=== PATIENT | male | born 1990 | race Caucasian/White ===

== ENCOUNTER 2017-06-13 00:34 | Emergency (ER) | payer MEDICAID ==
[2017-06-13 00:57] VITALS: TEMP 102.5
[2017-06-13] MEDS ORDERED: IBUPROFEN 600 MG TAB PO STA (01:06)
[2017-06-13] MEDS ORDERED: ACETAMINOPHEN TAB 500 MG TAB PO STA (01:06)
--- NOTE | 2017-06-13 01:08 | ED ---
General Adult HPI - General Chief complaint: Fever Stated complaint: fever Time Seen by Provider: 06/13/17 01:01 Source: patient, RN notes reviewed Mode of arrival: ambulatory Limitations: no limitations - History of Present Illness Initial comments: Patient is a pleasant 26-year-old male presenting to the emergency department with concerns for fever. Onset of symptoms was around 7 PM tonight. Patient complains of headache. Patient does have mild cough. Patient has had diarrhea a couple times a day for the past few days however none today. Patient has some nausea. No neck pain. - Related Data Allergies Allergy/AdvReac Type Severity Reaction Status Date / Time No Known Allergies Allergy Verified 06/13/17 00:57 Review of Systems ROS Statement: Those systems with pertinent positive or pertinent negative responses have been documented in the HPI. ROS Other: All systems not noted in ROS Statement are negative. Constitutional: Reports: fever, chills Eyes: Denies: eye pain ENT: Denies: ear pain Respiratory: Reports: cough. Denies: dyspnea Cardiovascular: Denies: chest pain Endocrine: Denies: fatigue Gastrointestinal: Reports: nausea, diarrhea. Denies: abdominal pain, vomiting Genitourinary: Denies: dysuria Musculoskeletal: Denies: back pain Skin: Denies: rash Neurological: Denies: weakness Past Medical History Past Medical History: GERD/Reflux, Hypertension History of Any Multi-Drug Resistant Organisms: None Reported Additional Past Surgical History / Comment(s): diverticulum. Past Psychological History: Depression Smoking Status: Never smoker Past Alcohol Use History: Occasional Past Drug Use History: None Reported General Exam Limitations: no limitations General appearance: alert, in no apparent distress Head exam: Present: atraumatic Eye exam: Present: normal appearance, PERRL ENT exam: Present: normal oropharynx Neck exam: Present: normal inspection Respiratory exam: Present: normal lung sounds bilaterally Cardiovascular Exam: Present: normal rhythm, tachycardia GI/Abdominal exam: Present: soft. Absent: tenderness Extremities exam: Present: normal inspection Neurological exam: Present: alert Psychiatric exam: Present: normal affect, normal mood Skin exam: Present: normal color Course Vital Signs 06/13/17 06/13/17 00:53 03:49 Temperature 102.5 F H Pulse Rate 147 H 108 H Respiratory 20 17 Rate Blood Pressure 133/74 110/65 O2 Sat by Pulse 100 96 Oximetry - Reevaluation(s) Reevaluation #1: 06/13/17 02:44 Patient was reexamined and resting comfortably in bed. Patient states he is starting to feel better. Abdomen is soft with mild tenderness right upper quadrant/epigastric region. No other abdominal tenderness. Patient states he does have history of previous appendectomy. 06/13/17 04:02 Patient again reexamined and resting comfortably in bed. Patient states he has a known history of hepatomegaly and fatty liver. Patient states he does have a history of elevated liver enzymes and has previously been tested for hepatitis and he does not have hepatitis. Patient is feeling better at this point and is comfortable with discharge. Medical Decision Making - Lab Data Result diagrams: 06/13/17 01:21 06/13/17 01:21 Lab Results 06/13/17 06/13/17 06/13/17 Range/Units 01:21 01:21 01:21 WBC 10.1 (3.8-10.6) k/uL RBC 5.00 (4.30-5.90) m/uL Hgb 15.6 (13.0-17.5) gm/dL Hct 44.4 (39.0-53.0) % MCV 88.9 (80.0-100.0) fL MCH 31.2 (25.0-35.0) pg MCHC 35.1 (31.0-37.0) g/dL RDW 14.9 (11.5-15.5) % Plt Count 199 (150-450) k/uL Neutrophils % 77 % Lymphocytes % 14 % Monocytes % 6 % Eosinophils % 0 % Basophils % 0 % Neutrophils # 7.8 H (1.3-7.7) k/uL Lymphocytes # 1.4 (1.0-4.8) k/uL Monocytes # 0.7 (0-1.0) k/uL Eosinophils # 0.0 (0-0.7) k/uL Basophils # 0.0 (0-0.2) k/uL PT (9.0-12.0) sec INR (<1.2) APTT (22.0-30.0) sec Sodium 138 (137-145) mmol/L Potassium 4.1 (3.5-5.1) mmol/L Chloride 103 (98-107) mmol/L Carbon Dioxide 22 (22-30) mmol/L Anion Gap 13 mmol/L BUN 14 (9-20) mg/dL Creatinine 1.10 (0.66-1.25) mg/dL Est GFR (MDRD) Af Amer >60 (>60 ml/min/1.73 sqM) Est GFR (MDRD) Non-Af >60 (>60 ml/min/1.73 sqM) Glucose 108 H (74-99) mg/dL Plasma Lactic Acid Andrew (0.7-2.0) mmol/L Calcium 9.8 (8.4-10.2) mg/dL Total Bilirubin 0.7 (0.2-1.3) mg/dL AST 41 (17-59) U/L ALT 126 H (21-72) U/L Alkaline Phosphatase 596 H (38-126) U/L Total Protein 8.0 (6.3-8.2) g/dL Albumin 4.5 (3.5-5.0) g/dL Urine Color Urine Appearance (Clear) Urine pH (5.0-8.0) Ur Specific [place] (1.001-1.035) Urine Protein (Negative) Urine Glucose (UA) (Negative) Urine Ketones (Negative) Urine Blood (Negative) Urine Nitrite (Negative) Urine Bilirubin (Negative) Urine Urobilinogen (<2.0) mg/dL Ur Leukocyte Esterase (Negative) Urine RBC (0-5) /hpf Urine WBC (0-5) /hpf Ur Squamous Epith Cells (0-4) /hpf Hyaline Casts (0-2) /lpf Urine Mucus (None) /hpf Influenza Type A RNA Not Detected (Not Detectd) Influenza Type B (PCR) Not Detected (Not Detectd) Group A Strep Rapid (Negative) 06/13/17 06/13/17 06/13/17 Range/Units 01:21 01:21 01:21 WBC (3.8-10.6) k/uL RBC (4.30-5.90) m/uL Hgb (13.0-17.5) gm/dL Hct (39.0-53.0) % MCV (80.0-100.0) fL MCH (25.0-35.0) pg MCHC (31.0-37.0) g/dL RDW (11.5-15.5) % Plt Count (150-450) k/uL Neutrophils % % Lymphocytes % % Monocytes % % Eosinophils % % Basophils % % Neutrophils # (1.3-7.7) k/uL Lymphocytes # (1.0-4.8) k/uL Monocytes # (0-1.0) k/uL Eosinophils # (0-0.7) k/uL Basophils # (0-0.2) k/uL PT 10.8 (9.0-12.0) sec INR 1.1 (<1.2) APTT 24.9 (22.0-30.0) sec Sodium (137-145) mmol/L Potassium (3.5-5.1) mmol/L Chloride (98-107) mmol/L Carbon Dioxide (22-30) mmol/L Anion Gap mmol/L BUN (9-20) mg/dL Creatinine (0.66-1.25) mg/dL Est GFR (MDRD) Af Amer (>60 ml/min/1.73 sqM) Est GFR (MDRD) Non-Af (>60 ml/min/1.73 sqM) Glucose (74-99) mg/dL Plasma Lactic Acid Andrew 1.6 (0.7-2.0) mmol/L Calcium (8.4-10.2) mg/dL Total Bilirubin (0.2-1.3) mg/dL AST (17-59) U/L ALT (21-72) U/L Alkaline Phosphatase (38-126) U/L Total Protein (6.3-8.2) g/dL Albumin (3.5-5.0) g/dL Urine Color Yellow Urine Appearance Clear (Clear) Urine pH 5.5 (5.0-8.0) Ur Specific [place] 1.020 (1.001-1.035) Urine Protein Negative (Negative) Urine Glucose (UA) Negative (Negative) Urine Ketones Negative (Negative) Urine Blood Trace H (Negative) Urine Nitrite Negative (Negative) Urine Bilirubin Negative (Negative) Urine Urobilinogen <2.0 (<2.0) mg/dL Ur Leukocyte Esterase Negative (Negative) Urine RBC <1 (0-5) /hpf Urine WBC 2 (0-5) /hpf Ur Squamous Epith Cells <1 (0-4) /hpf Hyaline Casts 1 (0-2) /lpf Urine Mucus Rare H (None) /hpf Influenza Type A RNA (Not Detectd) Influenza Type B (PCR) (Not Detectd) Group A Strep Rapid (Negative) 06/13/17 Range/Units 01:21 WBC (3.8-10.6) k/uL RBC (4.30-5.90) m/uL Hgb (13.0-17.5) gm/dL Hct (39.0-53.0) % MCV (80.0-100.0) fL MCH (25.0-35.0) pg MCHC (31.0-37.0) g/dL RDW (11.5-15.5) % Plt Count (150-450) k/uL Neutrophils % % Lymphocytes % % Monocytes % % Eosinophils % % Basophils % % Neutrophils # (1.3-7.7) k/uL Lymphocytes # (1.0-4.8) k/uL Monocytes # (0-1.0) k/uL Eosinophils # (0-0.7) k/uL Basophils # (0-0.2) k/uL PT (9.0-12.0) sec INR (<1.2) APTT (22.0-30.0) sec Sodium (137-145) mmol/L Potassium (3.5-5.1) mmol/L Chloride (98-107) mmol/L Carbon Dioxide (22-30) mmol/L Anion Gap mmol/L BUN (9-20) mg/dL Creatinine (0.66-1.25) mg/dL Est GFR (MDRD) Af Amer (>60 ml/min/1.73 sqM) Est GFR (MDRD) Non-Af (>60 ml/min/1.73 sqM) Glucose (74-99) mg/dL Plasma Lactic Acid Andrew (0.7-2.0) mmol/L Calcium (8.4-10.2) mg/dL Total Bilirubin (0.2-1.3) mg/dL AST (17-59) U/L ALT (21-72) U/L Alkaline Phosphatase (38-126) U/L Total Protein (6.3-8.2) g/dL Albumin (3.5-5.0) g/dL Urine Color Urine Appearance (Clear) Urine pH (5.0-8.0) Ur Specific [place] (1.001-1.035) Urine Protein (Negative) Urine Glucose (UA) (Negative) Urine Ketones (Negative) Urine Blood (Negative) Urine Nitrite (Negative) Urine Bilirubin (Negative) Urine Urobilinogen (<2.0) mg/dL Ur Leukocyte Esterase (Negative) Urine RBC (0-5) /hpf Urine WBC (0-5) /hpf Ur Squamous Epith Cells (0-4) /hpf Hyaline Casts (0-2) /lpf Urine Mucus (None) /hpf Influenza Type A RNA (Not Detectd) Influenza Type B (PCR) (Not Detectd) Group A Strep Rapid Negative (Negative) - Radiology Data Radiology results: report reviewed (Ultrasound gallbladder shows hepatomegaly with hepatic steatosis.), image reviewed (Two-view chest x-ray shows no acute process) Disposition Clinical Impression: Fever Disposition: HOME SELF-CARE Condition: Stable Instructions: Fever in Adults (ED) Additional Instructions: Please follow-up to primary care physician in the next day or 2 for recheck. Return for uncontrolled fever, headache, stiff neck, difficulty breathing, not tolerating fluids, worsening symptoms or other concerns. [id number] Motrin as needed. Referrals: Abdirizak Gomez MD [Primary Care Provider] - 1-2 days Time of Disposition: 04:04
[2017-06-13] MEDS: SODIUM CHLORIDE 0.9% 500 ML IV SCH ×4 (01:32→03:10)
[2017-06-13 01:37] LABS: Basophils % (A) 0 %; CH 30.8; CHCM 34.9; Eosinophils % (A) 0 %; HCT 44.4 % (39.0-53.0); HDW 2.94; HGB 15.6 gm/dL (13.0-17.5); Luc # (Auto) 0.21; Luc % (Auto) 2; Lymphocytes # (A) 1.4 k/uL (1.0-4.8); Lymphocytes % (A) 14 %; MCH 31.2 pg (25.0-35.0); MCHC 35.1 g/dL (31.0-37.0); MCV 88.9 fL (80.0-100.0); Mean Platelet Volume 8.1; Monocytes # (A) 0.7 k/uL (0-1.0); Monocytes % (A) 6 %; Neutrophils # (A) 7.8 k/uL (1.3-7.7); Neutrophils % (A) 77 %; RDW 14.9 % (11.5-15.5); WBC 10.1 k/uL (3.8-10.6); WBC (Perox) 10.93
[2017-06-13 01:45] LABS: INR 1.1 (<1.2); Partial Thromboplastin Time 24.9 sec (22.0-30.0); Prothrombin Time 10.8 sec (9.0-12.0)
[2017-06-13 01:46] LABS: Appearance,Urine Clear (Clear); Bilirubin,Urine Negative (Negative); Glucose,Urine (UA) Negative (Negative); Ketones,Urine Negative (Negative); Leukocyte Esterase,Urine Negative (Negative); Mucus,Urine Rare /hpf; Nitrite,Urine Negative (Negative); PH, Urine 5.5 (5.0-8.0); Particle Count 2353; Protein,Urine Negative (Negative); RBC,Urine <1 /hpf (0-5); Squamous Epithelial Cell,Urine <1 /hpf (0-4); UA Billing (MACRO vs. MICRO) MICRO; Urobilinogen,Urine <2.0 mg/dL (<2.0); WBC,Urine 2 /hpf (0-5)
[2017-06-13 01:50] LABS: ALT 126 U/L (21-72); AST 41 U/L (17-59); Alkaline Phosphatase 596 U/L (38-126); Anion Gap 13 mmol/L; Blood Urea Nitrogen 14 mg/dL (9-20); Calcium 9.8 mg/dL (8.4-10.2); Carbon Dioxide 22 mmol/L (22-30); Chloride 103 mmol/L (98-107); Glucose 108 mg/dL (74-99); Non-African American GFR(MDRD) >60 (>60 ml/min/1.73 sqM); Potassium 4.1 mmol/L (3.5-5.1); Sodium 138 mmol/L (137-145); Total Bilirubin 0.7 mg/dL (0.2-1.3)
--- NOTE | 2017-06-13 01:58 | XR ---
EXAMINATION TYPE: XR chest 2V DATE OF EXAM: 06/13/2017 COMPARISON: NONE HISTORY: Cough and congestion. Fever. TECHNIQUE: Frontal and lateral views of the chest are obtained. FINDINGS: Heart and mediastinum are normal. Lungs are clear. Diaphragm is normal. Bony thorax is int act. IMPRESSION: Normal chest
[2017-06-13 03:49] VITALS: BP 110/65; PULSE 108; RESP 17
--- NOTE | 2017-06-13 03:50 | US ---
EXAM: US Abdomen Limited, Right Upper Quadrant CLINICAL HISTORY: Reason: Pain TECHNIQUE: Real-time ultrasound of the right upper quadrant with image documentation. COMPARISON: No relevant prior studies available. FINDINGS: Liver: Liver is enlarged measuring up to 19 cm with increased echogenicity suggesting steatosis. No intrahepatic bile duct dilation. Gallbladder: No gallstones, sludge, gallbladder wall thickening or pericholecystic fluid. Negative sonographic Gaytan's sign. Common bile duct: Common bile duct is within normal limits measuring up to 4 mm. No stones. No dilation. Pancreas: Obscured by bowel gas. Right kidney: The right kidney is normal size and echogenicity measuring 10.57 m. No stones, masses or hydronephrosis. IMPRESSION: Hepatomegaly with hepatic steatosis.
== END 2017-06-13 04:13 | disposition home or self-care (01) ==
LOC: EC 00:34
DX: R50.9 Fever, unspecified (principal); R51 Headache; R05 Cough; R11.0 Nausea; R10.811 Right upper quadrant abdominal tenderness; R10.816 Epigastric abdominal tenderness
CPT/HCPCS: 36415; 71020; 76705; 80053; 81001; 83605; 85025; 85610; 85730; 87040; 87081; 87086; 87430; 87502; 96360; 96361; 99284

== ENCOUNTER → 2017-07-27 | Outpatient (CLI) | payer MEDICAID ==
--- NOTE | 2017-07-28 05:42 | CONS ---
CONSULTATION REASON FOR CONSULTATION: Consultation for sleep apnea. 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 The patient was on a trip with his friends and he was told to snore very loud and he quits breathing for an extended period of time to the point where he has to be wakened up by his friends to make sure he is alive and/or still breathing. He is aware of his loud snoring. He wakes up tired during the day. He goes to bed around 11 p.m. and wakes up at 5:30 a.m. in the morning. He wakes up with dry mouth. He occasionally wakes up gasping for air. However this is not a very common occurrence. He does not fall asleep during day-to-day activities. He does not fall asleep during work. No recent weight gain. He has developed some mild component of depression for which he is on venlafaxine 75 mg p.o. daily. No positive family history of obstructive sleep apnea. His weight has been stable over the past 1 year. Overall he has gained around 75 pounds over the past 5 years. PAST MEDICAL HISTORY: Hypertension, acid reflux and mild depression. PAST SURGICAL HISTORY: Past surgical history includes appendectomy. DRUG ALLERGIES: Drug allergies are not known. OUTPATIENT MEDICATION LIST: Outpatient medication list includes Protonix 40 q. day, lisinopril 10 q. day, venlafaxine 75 mg p.o. q. day. SOCIAL HISTORY: Nonsmoker. No history of alcohol. No history of IV drugs. The patient goes to school and he is a nurse's aide at [employer]. FAMILY HISTORY: Negative for sleep apnea. REVIEW OF SYSTEMS: Twelve-point review of system was done and positive findings are mentioned above in the history of present illness. PHYSICAL EXAMINATION: BP is 122/89, pulse 100, respirations 16, temperature 97.7, saturation 99% on room air. BMI 35.7, weight is 249. Height is 5 feet 10 inches. Neck size 17.5 inches. GENERAL APPEARANCE: Calm, comfortable. Head is atraumatic, normocephalic. Neck is supple. There is no JVD. There is no goiter or neck masses. Mallampati class 4. Bilateral tonsillar enlargement. Redundant and enlarged uvula. LUNGS: Clear to auscultation. HEART: Sounds regular rate and rhythm. Normal S1, S2. No S3, S4. No murmurs. ABDOMEN: Soft, nontender. No organomegaly. EXTREMITIES: No edema. No cyanosis or clubbing at this point. NEUROLOGIC: Alert and oriented x3. There is no focal neurological deficits. Psychiatrically, the patient has appropriate mood and affect. SKIN: Negative for ulceration, wound, or cellulitis. IMPRESSION: 1. Obstructive sleep apnea clinically suspected under investigation. 2. Chronic fatigue and sleepiness. Houston Score is at 9. 3. Bilateral tonsillar enlargement. 4. Mild depression. 5. Hypertension. 6. Acid reflux. PLAN: 1. Encourage weight loss. 2. Implement good sleep hygiene measures. 3. Proceed with a screening polysomnogram. We will continue to follow. CHRISTOPHE / WILFREDN: [id number] /
== END | disposition home or self-care (01) ==
LOC: SLEEP 16:10
PROVIDERS: ATTEND Internal Medicine Critical Care Medicine
DX: J35.1 Hypertrophy of tonsils (principal); F32.9 Major depressive disorder, single episode, unspecified; I10 Essential (primary) hypertension; K21.9 Gastro-esophageal reflux disease without esophagitis; R53.82 Chronic fatigue, unspecified; Z79.899 Other long term (current) drug therapy
CPT/HCPCS: 99211

== ENCOUNTER 2018-06-11 09:35 | Emergency (ER) | payer MEDICAID ==
[2018-06-11 09:45] VITALS: BP 128/87; PULSE 95; RESP 16; TEMP 98.1
--- NOTE | 2018-06-11 09:54 | ED ---
Lower Extremity Injury HPI - General Chief Complaint: Extremity Injury, Lower Stated Complaint: Foot injury/Fall Time Seen by Provider: 06/11/18 09:46 Source: patient, RN notes reviewed Mode of arrival: wheelchair Limitations: no limitations - History of Present Illness Initial Comments: 27-year-old male present emergency department tingling right ankle injury. Patient states that he was going to the car states that he slipped on some ice and states that his foot and ankle rotated outward. Patient complains of right ankle pain. He states she's had a sprain in the past no acute fractures. Patient denies any head injury no loss conscious. Patient denies any other areas of pain at this time. Patient does admit to some swelling. Unable to bear weight secondary to pain. - Related Data Previous Rx's Medication Instructions Recorded Ibuprofen [Motrin] 600 mg PO Q8HR PRN #30 tab 06/11/18 Allergies Allergy/AdvReac Type Severity Reaction Status Date / Time No Known Allergies Allergy Verified 06/11/18 09:45 Review of Systems ROS Statement: Those systems with pertinent positive or pertinent negative responses have been documented in the HPI. ROS Other: All systems not noted in ROS Statement are negative. Past Medical History Past Medical History: GERD/Reflux, Hypertension History of Any Multi-Drug Resistant Organisms: None Reported Additional Past Surgical History / Comment(s): diverticulum. Past Psychological History: Depression Smoking Status: Never smoker Past Alcohol Use History: Occasional Past Drug Use History: None Reported General Exam Limitations: no limitations General appearance: alert, in no apparent distress Head exam: Present: atraumatic, normocephalic, normal inspection Neck exam: Present: normal inspection, full ROM. Absent: tenderness, meningismus, lymphadenopathy Respiratory exam: Present: normal lung sounds bilaterally. Absent: respiratory distress, wheezes, rales, rhonchi, stridor Cardiovascular Exam: Present: regular rate, normal rhythm, normal heart sounds. Absent: systolic murmur, diastolic murmur, rubs, gallop, clicks Extremities exam: Present: other (Right ankle there is moderate swelling, tenderness over lateral malleoli region, no foot tenderness there is no proximal tib-fib tenderness neurovascular intact right leg pulses equal bilaterally) Skin exam: Present: warm, dry, intact, normal color. Absent: rash Course Vital Signs 06/11/18 09:43 Temperature 98.1 F Pulse Rate 95 Respiratory 16 Rate Blood Pressure 128/87 O2 Sat by Pulse 98 Oximetry Procedures - Orthopedic Splinting/Casting Injury #1 Side: right Lower Extremity Injury Location: short leg, ankle Lower Extremity Immobilizer: posterior splint, synthetic pre-padded splint Other Orthopedic Equipment: crutches Medical Decision Making - Medical Decision Making 27-year-old male presents emergency from for right ankle injury. Patient has a fracture of the posterior malleolus and fibula. Patient will be splinted and follow up with orthopedics. Return parameters were discussed. Disposition Clinical Impression: Closed right ankle fracture Disposition: HOME SELF-CARE Condition: Stable Instructions: Ankle Fracture (ED) Additional Instructions: Please return to the Emergency Department if symptoms worsen or any other concerns. Prescriptions: Ibuprofen [Motrin] 600 mg PO Q8HR PRN #30 tab PRN Reason: Pain Is patient prescribed a controlled substance at d/c from ED?: No Referrals: Abdirizak Gomez MD [Primary Care Provider] - 1-2 days Som Blankenship DO [Doctor of Osteopathic Medicine] - 1-2 days Time of Disposition: 10:19
--- NOTE | 2018-06-11 10:09 | XR ---
EXAMINATION TYPE: XR ankle complete RT , 3 VIEWS DATE OF EXAM ORDERED: 06/11/2018 HISTORY: Pain. COMPARISON: None. FINDINGS: There is a mildly displaced spiral fracture of the distal right fibular metaphysis. There is also a minimally displaced fracture the posterior malleolus. There is a small ankle joint effusion . IMPRESSION: MILDLY DISPLACED FRACTURES OF THE POSTERIOR LATERAL MALLEOLI. CODE A: INITIAL ENCOUNTER FOR CLOSED FRACTURE.
[2018-06-11] MEDS ORDERED: ACET/COD 300 MG/30 MG STARTER PACK 6 TAB BTL PO STA (10:17)
== END 2018-06-11 10:45 | disposition home or self-care (01) ==
LOC: EC 09:35
DX: S82.61XA Displaced fracture of lateral malleolus of right fibula, initial encounter for closed fracture (principal); S82.491A Other fracture of shaft of right fibula, initial encounter for closed fracture; W00.0XXA Fall on same level due to ice and snow, initial encounter
CPT/HCPCS: 29515; 99283

== ENCOUNTER 2018-08-27 07:45 | Emergency (ER) | payer MEDICAID ==
[2018-08-27 07:50] VITALS: BP 144/90; PULSE 76; RESP 18; TEMP 98.1
[2018-08-27] MEDS ORDERED: KETOROLAC 30 MG/ML 1 ML VIAL IVP STA (08:00)
[2018-08-27] MEDS ORDERED: SODIUM CHLORIDE 0.9% 1,000 ML IV STA (08:00)
--- NOTE | 2018-08-27 08:04 | ED ---
General Adult HPI - General Chief complaint: Abdominal Pain Stated complaint: diarrhea Time Seen by Provider: 08/27/18 07:54 Source: patient Mode of arrival: ambulatory Limitations: no limitations - Related Data Home Medications Medication Instructions Recorded Confirmed Lisinopril-Hctz 10-12.5 mg 1 tab PO DAILY 08/27/18 08/27/18 [Zestoretic 10-12.5] Pantoprazole [Protonix] 40 mg PO DAILY 08/27/18 08/27/18 Venlafaxine HCl [Effexor XR] 75 mg PO DAILY 08/27/18 08/27/18 Previous Rx's Medication Instructions Recorded Azithromycin [Zithromax Z-pack] 0 mg PO DIRECTED #6 tab 08/27/18 Allergies Allergy/AdvReac Type Severity Reaction Status Date / Time No Known Allergies Allergy Verified 08/27/18 08:52 Review of Systems ROS Statement: Those systems with pertinent positive or pertinent negative responses have been documented in the HPI. ROS Other: All systems not noted in ROS Statement are negative. Past Medical History Past Medical History: GERD/Reflux, Hypertension History of Any Multi-Drug Resistant Organisms: None Reported Additional Past Surgical History / Comment(s): diverticulum. Past Psychological History: Depression Smoking Status: Never smoker Past Alcohol Use History: Occasional Past Drug Use History: None Reported General Exam Limitations: no limitations Course Vital Signs 08/27/18 07:47 Temperature 98.1 F Pulse Rate 76 Respiratory 18 Rate Blood Pressure 144/90 O2 Sat by Pulse 97 Oximetry Medical Decision Making - Medical Decision Making Dictation was produced using [employer] dictation software. please excuse any grammatical, word or spelling errors. Chief Complaint: 27-year-old male past medical history of diverticulitis presents with persistent diarrhea since last night. History of Present Illness: Patient is 27-year-old male. 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 Patient has past history of diverticulitis. Patient was told when he was diagnosed with diverticulitis. Patient states he had colectomy for this. Patient states since last night he's been having a approximately 8 episodes of diarrhea. He states that it's brown and watery. Denies any exposure to any patients or individuals with similar symptoms. Patient denies any recent travel. Denies any constitutional symptoms. He tried taking Imodium without any resolution of his symptoms. Patient states he has some abdominal pain. He states crampy abdominal pain localized to the suprapubic area. He does report some blood in his stool. The ROS documented in this emergency department record has been reviewed and confirmed by me. Those systems with pertinent positive or negative responses have been documented in the HPI. All other systems are other negative and/or noncontributory. PHYSICAL EXAM: General Impression: Alert and oriented x3, not in acute distress HEENT: Normocephalic atraumatic, extra-ocular movements intact, pupils equal and reactive to light bilaterally, mucous membranes moist. Cardiovascular: Heart regular rate and rhythm, S1&S2 audible, no murmurs, rubs or gallops Chest: Lungs clear to auscultation bilaterally, no rhonchi, no wheeze, no rales Abdomen: Bowel sounds present, abdomen soft, non-tender, non-distended, no organomegaly Musculoskeletal: Pulses present and equal in all extremities, no peripheral edema Motor: Power 5/5 bilaterally, no focal deficits noted Neurological: CN II-XII grossly intact, no focal motor or sensory deficits noted Skin: Intact with no visualized rashes Psych: Normal affect and mood ED course: 27-year-old male presents with chief complaint of diarrhea, suprapubic abdominal pain. As upon arrival are within acceptable limits. Clinical presentation concerning for diverticulitis versus bacterial gastroenteritis. Labs and imaging is obtained. Labs obtained was no remarkable findings. No leukocytosis. CT abdomen and pelvis with contrast shows no acute processes. Patient reevaluated with improvement of symptoms after intravenous fluids. Patient be discharged with prescription for azithromycin. Patient given follow-up with GI if his symptoms don't improve. Otherwise he can follow up with primary care physician. Patient advised to continue taking loperamide or other antidiarrheal medication. - Lab Data Result diagrams: 08/27/18 08:28 08/27/18 08:28 Lab Results 08/27/18 08/27/18 08/27/18 Range/Units 08:28 08:28 08:28 WBC 10.4 (3.8-10.6) k/uL RBC 5.14 (4.30-5.90) m/uL Hgb 15.5 (13.0-17.5) gm/dL Hct 45.5 (39.0-53.0) % MCV 88.5 (80.0-100.0) fL MCH 30.1 (25.0-35.0) pg MCHC 34.0 (31.0-37.0) g/dL RDW 13.7 (11.5-15.5) % Plt Count 244 (150-450) k/uL Neutrophils % 60 % Lymphocytes % 28 % Monocytes % 8 % Eosinophils % 1 % Basophils % 0 % Neutrophils # 6.2 (1.3-7.7) k/uL Lymphocytes # 2.9 (1.0-4.8) k/uL Monocytes # 0.8 (0-1.0) k/uL Eosinophils # 0.1 (0-0.7) k/uL Basophils # 0.0 (0-0.2) k/uL Sodium 140 (137-145) mmol/L Potassium 4.6 (3.5-5.1) mmol/L Chloride 105 (98-107) mmol/L Carbon Dioxide 26 (22-30) mmol/L Anion Gap 9 mmol/L BUN 14 (9-20) mg/dL Creatinine 0.77 (0.66-1.25) mg/dL Est GFR (CKD-EPI)AfAm >90 (>60 ml/min/1.73 sqM) Est GFR (CKD-EPI)NonAf >90 (>60 ml/min/1.73 sqM) Glucose 122 H (74-99) mg/dL Calcium 10.3 H (8.4-10.2) mg/dL Total Bilirubin 0.4 (0.2-1.3) mg/dL AST 69 H (17-59) U/L ALT 176 H (21-72) U/L Alkaline Phosphatase 67 (38-126) U/L Total Protein 8.2 (6.3-8.2) g/dL Albumin 4.5 (3.5-5.0) g/dL Lipase 43 (23-300) U/L Urine Color Light Yellow Urine Appearance Clear (Clear) Urine pH 6.5 (5.0-8.0) Ur Specific [place] 1.011 (1.001-1.035) Urine Protein Negative (Negative) Urine Glucose (UA) Negative (Negative) Urine Ketones Negative (Negative) Urine Blood Negative (Negative) Urine Nitrite Negative (Negative) Urine Bilirubin Negative (Negative) Urine Urobilinogen <2.0 (<2.0) mg/dL Ur Leukocyte Esterase Negative (Negative) Disposition Clinical Impression: Gastroenteritis Disposition: HOME SELF-CARE Condition: Good Instructions (If sedation given, give patient instructions): Gastroenteritis ( ED) Prescriptions: Azithromycin [Zithromax Z-pack] 0 mg PO DIRECTED #6 tab Is patient prescribed a controlled substance at d/c from ED?: No Referrals: Abdirizak Gomez MD [Primary Care Provider] - 1-2 days Jono Abernathy MD [STAFF PHYSICIAN] - 1-2 days Time of Disposition: 10:03
[2018-08-27 08:46] LABS: Appearance,Urine Clear (Clear); Basophils % (A) 0 %; Bilirubin,Urine Negative (Negative); Blood,Urine Negative (Negative); Color,Urine Light Yellow; Eosinophils # (A) 0.1 k/uL (0-0.7); Eosinophils % (A) 1 %; Glucose,Urine (UA) Negative (Negative); HCT 45.5 % (39.0-53.0); HGB 15.5 gm/dL (13.0-17.5); Ketones,Urine Negative (Negative); Leukocyte Esterase,Urine Negative (Negative); Lymphocytes # (A) 2.9 k/uL (1.0-4.8); Lymphocytes % (A) 28 %; MCH 30.1 pg (25.0-35.0); MCV 88.5 fL (80.0-100.0); Monocytes # (A) 0.8 k/uL (0-1.0); Monocytes % (A) 8 %; Neutrophils # (A) 6.2 k/uL (1.3-7.7); Neutrophils % (A) 60 %; Nitrite,Urine Negative (Negative); PH, Urine 6.5 (5.0-8.0); Platelet Count 244 k/uL (150-450); Protein,Urine Negative (Negative); RBC 5.14 m/uL (4.30-5.90); RDW 13.7 % (11.5-15.5); Specific Gravity,Urine 1.011 (1.001-1.035); Urobilinogen,Urine <2.0 mg/dL (<2.0); WBC 10.4 k/uL (3.8-10.6)
[2018-08-27 09:01] LABS: ALT 176 U/L (21-72); AST 69 U/L (17-59); Albumin 4.5 g/dL (3.5-5.0); Alkaline Phosphatase 67 U/L (38-126); Anion Gap 9 mmol/L; Blood Urea Nitrogen 14 mg/dL (9-20); Calcium 10.3 mg/dL (8.4-10.2); Carbon Dioxide 26 mmol/L (22-30); Chloride 105 mmol/L (98-107); Glucose 122 mg/dL (74-99); Lipase 43 U/L (23-300); Potassium 4.6 mmol/L (3.5-5.1); Sodium 140 mmol/L (137-145); Total Bilirubin 0.4 mg/dL (0.2-1.3); Total Protein 8.2 g/dL (6.3-8.2)
--- NOTE | 2018-08-27 09:47 | CT ---
EXAMINATION TYPE: CT abdomen pelvis w con DATE OF EXAM: 08/27/2018 COMPARISON: None. HISTORY: Diarrhea CT DLP: 1608.7 mGycm, Automated Exposure Control for Dose Reduction was Utilized. CONTRAST: CT scan of the abdomen and pelvis is performed without oral but with IV Contrast, patient injected wi th 100 mL of Isovue 300. FINDINGS: LUNG BASES: No significant abnormality is appreciated. LIVER/GB: Liver is diffusely low dense consistent with fatty infiltration. PANCREAS: No significant abnormality is seen. SPLEEN: No significant abnormality is seen. ADRENALS: No significant abnormality is seen. KIDNEYS: No significant abnormality is seen. BOWEL: Appendix noted surgically absent. No suspicious bowel dilatation or abnormal wall thickening. PROSTATE/SEMINAL VESICLES: No gross abnormality seen. LYMPH NODES: No greater than 1cm abdominal or pelvic lymph nodes are appreciated. OSSEOUS STRUCTURES: Small posterior disc herniations L4-L5 and L5-S1 level are seen on sagittal image 78. OTHER: No significant additional abnormality is seen. IMPRESSION: No significant acute finding is seen to account for patient's clinical symptoms.
== END 2018-08-27 10:18 | disposition home or self-care (01) ==
LOC: EC 07:45
DX: K52.9 Noninfective gastroenteritis and colitis, unspecified (principal); I10 Essential (primary) hypertension; K21.9 Gastro-esophageal reflux disease without esophagitis; F32.9 Major depressive disorder, single episode, unspecified; Z79.899 Other long term (current) drug therapy; Z90.49 Acquired absence of other specified parts of digestive tract
CPT/HCPCS: 36415; 80053; 83690; 85025; 81003; 74177; 99284; 96374; 96361 ×2; J1885; Q9967

== ENCOUNTER → 2019-08-04 | Outpatient (CLI) | payer MEDICAID ==
[2019-08-04 20:10] LABS: African American GFR (CKD) 136.1 (60.0-200.0); Albumin 4.6 g/dL (3.80-4.90); Albumin/Globulin Ratio 1.64 (1.60-3.17); Anion Gap 7.1 mmol/L (4.00-12.00); BUN/Creat Ratio 17.78 Ratio (12.00-20.00); Calcium 9.7 mg/dL (8.7-10.3); Carbon Dioxide 24.9 mmol/L (21.6-31.8); Chol/HDL Ratio 5.03; Globulin 2.8 g/dL (1.6-3.3); Non-African American GFR(CKD) 117.5 (60.0-200.0); Potassium 4.1 mmol/L (3.5-5.5); Total Bilirubin 0.4 mg/dL (0.3-1.2); Total Protein 7.4 g/dL (6.2-8.2)
== END | disposition home or self-care (01) ==
LOC: LABWHC1 07:32
PROVIDERS: ATTEND Family Medicine
DX: I10 Essential (primary) hypertension (principal); F34.1 Dysthymic disorder
CPT/HCPCS: 36415; 80053; 80061; 84443

== ENCOUNTER → 2019-09-05 | Outpatient (CLI) | payer MEDICAID ==
--- NOTE | 2019-09-05 22:35 | PN ---
PROGRESS NOTE SLEEP CENTER PROGRESS NOTE: DATE OF SERVICE: 09/05/2019 This is a very pleasant 28-year-old gentleman who follows with Dr. Gomez as his primary care provider. He has a history of hypertension, gastroesophageal reflux disease, anxiety/depression. He follows with Dr. Singleton here in the sleep center for severe symptomatic obstructive sleep apnea with an initial AHI of 95.2. He has since undergone CPAP titration and has improved significantly. He did not bring his CPAP machine with him today. He was hoping just to get his prescriptions renewed, as he was last here over one year ago. He utilizes [facility]. He wears an Belén View medium-sized mask and filters with a Dream Station CPAP. He is doing quite well from the sleep apnea standpoint. He sleeps very well. He has no significant daytime sleepiness. His [place] Sleepiness Scale score is 5. He has been attempting to lose weight. PHYSICAL EXAMINATION: This is a very pleasant 28-year-old gentleman in no acute distress. VITAL SIGNS: Blood pressure 126/76, heart rate 111, respirations 16, temperature 97.9. He is 97% oxygen saturation on room air. HEAD: Normocephalic. Sclerae anicteric. There is crowding in the posterior pharynx. His neck is short, supple. Trachea midline. LUNGS: Clear anteriorly and posteriorly. HEART: Regular S1, S2. ABDOMEN: Obese, soft, nontender. Bowel sounds are present. There is no significant peripheral edema. No clubbing. No cyanosis. Peripheral pulses are intact. CURRENT MEDICATIONS: His current medications include lisinopril 10/12.5 one tablet daily, pantoprazole 40 mg daily, bupropion 150 mg daily, venlafaxine 150 mg at bedtime. IMPRESSION: 1. Severe symptomatic obstructive sleep apnea with an apnea-hypopnea index of 95.2. The patient has undergone successful CPAP titration and is tolerating his device well. 2. Severe nocturnal oxygen desaturation, recovered with CPAP therapy. 3. Sleep fragmentation, improved with CPAP therapy. 4. Abnormal sleep architecture, improved with CPAP therapy. 5. Chronic hypersomnia, improved. 6. Obesity with a body mass index of 38. 7. Gastroesophageal reflux disease. 8. History of mild anxiety/depression. 9. Hypertension. 10.Bilateral tonsillar enlargement. PLAN: The patient's case was reviewed and discussed with Dr. Singleton. He will continue with his current CPAP therapy settings, which are 17 cm water with a C-flex of 3. He will continue with the Bel[place] View medium-sized face mask along with tubing and filters; prescriptions will be sent to [facility]. He is again encouraged regarding the importance of weight loss. He does have a history of bilateral tonsil enlargement and will be following with ENT in the future. The patient verbalizes understanding and is agreeable to the plan. I, the cosigning physician, performed a history and physical examination on the patient. Lung sounds are clear. Maintain oxygen saturation in the 90s on room air. I discussed the assessment and plan of care with my nurse practitioner, Barb Gutiérrez. I attest to the above note as dictated by her. MMODL / IJN: [id number] /
== END | disposition home or self-care (01) ==
LOC: SLEEP 13:41
PROVIDERS: ATTEND Internal Medicine Critical Care Medicine
DX: G47.33 Obstructive sleep apnea (adult) (pediatric) (principal); E66.9 Obesity, unspecified; Z68.38 Body mass index [BMI] 38.0-38.9, adult; K21.9 Gastro-esophageal reflux disease without esophagitis; Z86.59 Personal history of other mental and behavioral disorders; I10 Essential (primary) hypertension; J35.1 Hypertrophy of tonsils; Z99.89 Dependence on other enabling machines and devices; Z79.899 Other long term (current) drug therapy

== ENCOUNTER 2020-07-26 07:29 | Emergency (ER) | payer MEDICAID, OTHER ==
--- NOTE | 2020-07-26 07:32 | ED ---
Recheck HPI - General Source: patient, RN notes reviewed Mode of arrival: ambulatory Limitations: no limitations <Jose Castillo - Last Filed: 07/26/20 07:49> <Carol Shah - Last Filed: 07/27/20 13:19> - General Stated Complaint: needle stick from his job Time Seen by Provider: 07/26/20 07:31 - History of Present Illness Initial Comments: 29-year-old male present emergency department to complaint of needlestick. Patient states he went to close a safety cap on the needle after given IM Zofran states that he poked his finger. There is minimal skin breakage at that time. He is up-to-date on his tetanus there is no history of hepatitis or HIV of the known patient. Patient's blood was drawn and was sent out for testing. Patient offers no complaints. (Jose Castillo) - Related Data Home Medications Medication Instructions Recorded Confirmed Lisinopril-Hctz 10-12.5 mg 1 tab PO DAILY 08/27/18 08/27/18 [Zestoretic 10-12.5] Pantoprazole [Protonix] 40 mg PO DAILY 08/27/18 08/27/18 Venlafaxine HCl [Effexor XR] 75 mg PO DAILY 08/27/18 08/27/18 Previous Rx's Medication Instructions Recorded Azithromycin [Zithromax Z-pack] 0 mg PO DIRECTED #6 tab 08/27/18 Allergies Allergy/AdvReac Type Severity Reaction Status Date / Time No Known Allergies Allergy Verified 07/26/20 07:41 Review of Systems ROS Other: All systems not noted in ROS Statement are negative. <Jose Castillo - Last Filed: 07/26/20 07:49> ROS Other: All systems not noted in ROS Statement are negative. <Carol Shah - Last Filed: 07/27/20 13:19> ROS Statement: Those systems with pertinent positive or pertinent negative responses have been documented in the HPI. Past Medical History Past Medical History: GERD/Reflux, Hypertension History of Any Multi-Drug Resistant Organisms: None Reported Additional Past Surgical History / Comment(s): diverticulum. Past Psychological History: Depression Past Alcohol Use History: Occasional Past Drug Use History: None Reported <Jose Castillo - Last Filed: 07/26/20 07:49> General Exam General appearance: alert, in no apparent distress Head exam: Present: atraumatic, normocephalic, normal inspection Respiratory exam: Present: normal lung sounds bilaterally. Absent: respiratory distress, wheezes, rales, rhonchi, stridor Cardiovascular Exam: Present: regular rate, normal rhythm, normal heart sounds. Absent: systolic murmur, diastolic murmur, rubs, gallop, clicks Extremities exam: Present: other (Finger puncture wound noted left hand) <Jose Castillo - Last Filed: 07/26/20 07:49> Course Vital Signs 07/26/20 07:39 Temperature 98.9 F Pulse Rate 93 Respiratory 18 Rate Blood Pressure 138/90 O2 Sat by Pulse 97 Oximetry Medical Decision Making <Jose Castillo - Last Filed: 07/26/20 07:49> <Carol Shah - Last Filed: 07/27/20 13:19> - Medical Decision Making Patient did have hepatitis and rapid HIV drawn. Sources blood was sent out for testing. Patient was offered HIV prophylaxis patient states that he will decline pending results. (Jose Castillo) I was available for consultation in the emergency department. The history and physical exam were done by the midlevel provider. I was consulted for this patients care. I reviewed the case with the midlevel provider and based on their presentation of the patient, I agree with the assessment, medical decision making and plan of care as documented. Chart was dictated using iSSimple dictation software. Attempts were made to correct any dictation errors however some typographical errors may persist. Patient was seen during a national state of emergency due to the Covid-19 pandemic. (Carol Shah) - Lab Data Lab Results 07/26/20 Range/Units 07:53 Hep Bs Antigen Non-Reactive (Non-Reactive) Hep Bs Antibody Non-Reactive (Non-Reactive) Hep Bs Antibody, Quant 3.5 mIU/mL Hep C IgG Ab Non-Reactive (Non-Reactive) Disposition Is patient prescribed a controlled substance at d/c from ED?: No <Jose Castillo - Last Filed: 07/26/20 07:49> <Carol Shah - Last Filed: 07/27/20 13:19> Clinical Impression: Needlestick injury accident Disposition: HOME SELF-CARE Condition: Stable Instructions (If sedation given, give patient instructions): Needle Stick Injuries (ED) Additional Instructions: Please return to the Emergency Department if symptoms worsen or any other concerns. Referrals: Abdirizak Gomez MD [Primary Care Provider] - 1-2 days
[2020-07-26 07:41] VITALS: BP 138/90; PULSE 93; RESP 18; TEMP 98.9
[2020-07-26 11:30] LABS: Hepatitis B Surface AB- Quant 3.5 mIU/mL; Hepatitis B Surface Antibody Non-Reactive (Non-Reactive); Hepatitis B Surface Antigen Non-Reactive (Non-Reactive); Hepatitis C IgG Antibody Non-Reactive (Non-Reactive)
== END 2020-07-26 08:01 | disposition home or self-care (01) ==
LOC: EC 07:29
DX: S61.239A Puncture wound without foreign body of unspecified finger without damage to nail, initial encounter (principal); K21.9 Gastro-esophageal reflux disease without esophagitis; I10 Essential (primary) hypertension; F32.9 Major depressive disorder, single episode, unspecified; Z79.899 Other long term (current) drug therapy; Z77.21 Contact with and (suspected) exposure to potentially hazardous body fluids; X58.XXXA Exposure to other specified factors, initial encounter
CPT/HCPCS: 36415; 86706; 86803; 87340; 87390; 99282

== ENCOUNTER 2020-07-29 14:47 | Emergency (ER) | payer MEDICAID, OTHER ==
[2020-07-29 14:57] VITALS: BP 127/83; PULSE 86; RESP 18; TEMP 98.5
--- NOTE | 2020-07-29 15:42 | ED ---
Recheck HPI - General Chief Complaint: Recheck/Abnormal Lab/Rx Stated Complaint: [facility]-needlestick Time Seen by Provider: 07/29/20 15:18 Source: patient Mode of arrival: ambulatory Limitations: no limitations - History of Present Illness Initial Comments: 29-year-old male presenting to emergency Department for injection of hepatitis B immune globulin per request of [facility]. Patient states he had a needle stick exposure recently and he was evaluated in emergency department. However, he was sent back to the emergency department in orderr to obtain the hepatitis B immune globulin. He has no complaints. - Related Data Home Medications Medication Instructions Recorded Confirmed Lisinopril-Hctz 10-12.5 mg 1 tab PO DAILY 08/27/18 08/27/18 [Zestoretic 10-12.5] Pantoprazole [Protonix] 40 mg PO DAILY 08/27/18 08/27/18 Venlafaxine HCl [Effexor XR] 75 mg PO DAILY 08/27/18 08/27/18 Previous Rx's Medication Instructions Recorded Azithromycin [Zithromax Z-pack] 0 mg PO DIRECTED #6 tab 08/27/18 Allergies Allergy/AdvReac Type Severity Reaction Status Date / Time No Known Allergies Allergy Verified 07/29/20 14:57 Review of Systems ROS Statement: Those systems with pertinent positive or pertinent negative responses have been documented in the HPI. ROS Other: All systems not noted in ROS Statement are negative. Past Medical History Past Medical History: GERD/Reflux, Hypertension History of Any Multi-Drug Resistant Organisms: None Reported Additional Past Surgical History / Comment(s): diverticulum. Past Psychological History: Anxiety, Depression Smoking Status: Never smoker Past Alcohol Use History: Occasional Past Drug Use History: None Reported General Exam Limitations: no limitations General appearance: alert, in no apparent distress Head exam: Present: atraumatic, normocephalic, normal inspection Eye exam: Present: normal appearance Pupils: Present: normal accommodation ENT exam: Present: normal exam Neck exam: Present: normal inspection, full ROM Respiratory exam: Present: normal lung sounds bilaterally Cardiovascular Exam: Present: regular rate, normal rhythm, normal heart sounds Extremities exam: Present: normal inspection, full ROM Back exam: Present: normal inspection, full ROM Neurological exam: Present: alert, oriented X3, normal gait Psychiatric exam: Present: normal affect, normal mood Skin exam: Present: warm, dry, intact, normal color Course Vital Signs 07/29/20 14:52 Temperature 98.5 F Pulse Rate 86 Respiratory 18 Rate Blood Pressure 127/83 O2 Sat by Pulse 98 Oximetry Medical Decision Making - Medical Decision Making 29-year-old male presenting to the emergency department for administration of hepatitis B immunoglobulin per the request of [facility]. Patient was given medication. He will be discharged. Disposition Clinical Impression: Needle stick injury Disposition: HOME SELF-CARE Condition: Stable Instructions (If sedation given, give patient instructions): Needle Stick Injuries (ED) Additional Instructions: Return to emergency department if symptoms worsen. Is patient prescribed a controlled substance at d/c from ED?: No Referrals: Abdirizak Gomez MD [Primary Care Provider] - 1-2 days Time of Disposition: 16:02
[2020-07-29] MEDS ORDERED: HEPATITIS B IMMUNE GLOBULIN 5 ML VIAL IM ONE (16:03)
== END 2020-07-29 16:44 | disposition home or self-care (01) ==
LOC: EC 14:47
DX: Z77.21 Contact with and (suspected) exposure to potentially hazardous body fluids (principal)
CPT/HCPCS: 90371; 96372; 99281

== ENCOUNTER → 2020-08-30 | Outpatient (CLI) | payer BC ==
[2020-08-30 15:19] LABS: Basophils # (A) 0.04 X 10*3/uL (0.00-0.10); Basophils % (A) 0.5 %; Eosinophils # (A) 0.11 X 10*3/uL (0.04-0.35); Eosinophils % (A) 1.4 %; HCT 45.4 % (39.6-50.0); HGB 15.4 g/dL (13.0-17.0); Lymphocytes # (A) 2.93 X 10*3/uL (0.90-5.00); Lymphocytes % (A) 36.6 %; MCH 30.2 pg (27.0-32.0); MCHC 33.9 g/dL (32.0-37.0); Mean Platelet Volume 10.7 fL (9.5-12.2); Monocytes # (A) 0.87 X 10*3/uL (0.20-1.00); Monocytes % (A) 10.9 %; Neutrophils # (A) 4.02 X 10*3/uL (1.80-7.70); Neutrophils % (A) 50.1 %; Platelet Count 243 X 10*3/uL (140-440); RDW 13.9 % (11.5-14.5); WBC 8.01 X 10*3/uL (4.50-10.00)
[2020-08-30 20:11] LABS: African American GFR (CKD) 106.1 (60.0-200.0); Anion Gap 12.9 mmol/L (4.00-12.00); BUN/Creat Ratio 13.64 Ratio (12.00-20.00); Carbon Dioxide 28.1 mmol/L (21.6-31.8); Non-African American GFR(CKD) 91.5 (60.0-200.0); Potassium 4.2 mmol/L (3.5-5.5)
[2020-08-30 20:23] LABS: HIV 2 AB Non-Reactive (Non-Reactive); HIV AB P24 Non-Reactive (Non-Reactive); HIV P24 AG Non-Reactive (Non-Reactive)
[2020-08-30 23:35] LABS: Hepatitis B Surface Antigen Non-Reactive (Non-Reactive); Hepatitis C IgG Antibody Non-Reactive (Non-Reactive)
== END | disposition home or self-care (01) ==
LOC: LABWHC1 09:33
PROVIDERS: ATTEND Internal Medicine Infectious Disease
DX: Z20.828 Contact with and (suspected) exposure to other viral communicable diseases (principal)
CPT/HCPCS: 36415; 80048; 85025; 86803; 87340; 87390

== ENCOUNTER → 2020-12-03 | Outpatient (CLI) | payer BC ==
--- NOTE | 2020-12-03 17:43 | PN ---
PROGRESS NOTE This is a 30-year-old male patient with known history of obstructive sleep apnea coming in for an annual check. He is an [employer]. He is currently working at [employer]. He has severe obstructive sleep apnea. His baseline AHI was 95, and the patient was maintained on a CPAP pressure of 17 cm of water. He is still living with his grandmother. He has gained weight and his current weight is up to 276. He is using an Belén View full-face mask, medium size. He has depression and hypertension as comorbid conditions. Based on the compliance data, the patient is using his machine every night, averaging around 6.3 hours of CPAP use per night, and his AHI is down to 5.7. He has a good mask fit. He is waking up refreshed and alert during the day. His functionality at work is appropriate. No major tiredness, sleepiness or fatigue during the day. No nocturnal chest pain, shortness of breath or heartburn. [place] score is currently at 5. REVIEW OF SYSTEMS: Fourteen-point review of systems was done. Positive findings are all mentioned above in the history of present illness. PHYSICAL EXAMINATION: BP is 129/82, pulse 90, respirations 16, temperature 96.8. Saturation is 97% on room air. Weight is 276, height is 5 feet 10 inches, BMI 39.6. [place] score is 5. GENERAL APPEARANCE: Calm, comfortable. HEAD: Atraumatic, normocephalic. NECK: Supple. No JVD. No goiter or neck masses. Mallampati class IV. LUNGS: Clear to auscultation. HEART: Heart sounds are regular rate and rhythm. Normal S1, S2. No S3, S4. No murmurs. ABDOMEN: Soft, nontender. No organomegaly. EXTREMITIES: No edema. No cyanosis or clubbing. NEUROLOGIC: Awake and alert. There is no focal neurological deficit. IMPRESSION: 1. Severe obstructive sleep apnea with an AHI of 95, currently on CPAP pressure of 17. 2. Obesity with interval weight gain. Current body mass index is 39 with a weight of 276. 3. Hypertension. 4. Depression. 5. Obesity with a BMI of 39.6. PLAN: Treatment is successful. Keep the same pressure setting. Keep the same mask interface, which is Belén View full-face mask, medium size. Refills were given. Implement good sleep hygiene habits and measures. Weight loss is recommended. Otherwise, the rest of the comorbidities are all inactive and stable. The patient has been well treated and will see me back in a few years' time in followup, earlier if needed. For now his condition is stable. MMODL / IJN: [id number] /
== END ==
LOC: SLEEP 13:02
PROVIDERS: ATTEND Internal Medicine Critical Care Medicine
DX: G47.33 Obstructive sleep apnea (adult) (pediatric) (principal); E66.9 Obesity, unspecified; I10 Essential (primary) hypertension; F32.9 Major depressive disorder, single episode, unspecified; Z68.39 Body mass index [BMI] 39.0-39.9, adult

== ENCOUNTER 2020-12-19 23:04 | Emergency (ER) | payer BC ==
[2020-12-19 23:13] VITALS: BP 117/82; PULSE 89; RESP 18; TEMP 98
[2020-12-19] MEDS ORDERED: IBUPROFEN 800 MG TAB PO STA (23:22)
--- NOTE | 2020-12-19 23:26 | ED ---
General Adult HPI - General Chief complaint: Extremity Injury, Upper Stated complaint: Left ankle pain Time Seen by Provider: 12/19/20 23:14 Source: patient, RN notes reviewed Mode of arrival: ambulatory Limitations: no limitations - History of Present Illness Initial comments: Patient is a 30-year-old male that presents to emergency problem with left ankle pain. He notes that while at work it progressively gets more sore over the anterior lateral aspect. He notes that there is more pain on plantar flexion then any other movement. He does note that he has full range of motion. Strength. He notes that he tried taking a few days off resting it thinking that that might help. He notes this is back to work today the pain immediately return. He denied any injury or trauma to the left ankle. He denied any weakness numbness tingling decreased range of motion strength fever fatigue chills - Related Data Home Medications Medication Instructions Recorded Confirmed Lisinopril-Hctz 10-12.5 mg 1 tab PO DAILY 08/27/18 08/27/18 [Zestoretic 10-12.5] Pantoprazole [Protonix] 40 mg PO DAILY 08/27/18 08/27/18 Venlafaxine HCl [Effexor XR] 75 mg PO DAILY 08/27/18 08/27/18 Previous Rx's Medication Instructions Recorded Azithromycin [Zithromax Z-pack] 0 mg PO DIRECTED #6 tab 08/27/18 Allergies Allergy/AdvReac Type Severity Reaction Status Date / Time No Known Allergies Allergy Verified 12/19/20 23:12 Review of Systems ROS Statement: Those systems with pertinent positive or pertinent negative responses have been documented in the HPI. ROS Other: All systems not noted in ROS Statement are negative. Past Medical History Past Medical History: GERD/Reflux, Hypertension History of Any Multi-Drug Resistant Organisms: None Reported Additional Past Surgical History / Comment(s): diverticulum. Past Psychological History: Anxiety, Depression Smoking Status: Never smoker Past Alcohol Use History: Occasional Past Drug Use History: None Reported General Exam Limitations: no limitations General appearance: alert, in no apparent distress, obese Head exam: Present: atraumatic, normocephalic, normal inspection Eye exam: Present: normal appearance, PERRL, EOMI. Absent: scleral icterus, conjunctival injection, periorbital swelling Neck exam: Present: normal inspection Respiratory exam: Present: normal lung sounds bilaterally. Absent: respiratory distress, wheezes, rales, rhonchi, stridor Cardiovascular Exam: Present: regular rate, normal rhythm, normal heart sounds. Absent: systolic murmur, diastolic murmur, rubs, gallop, clicks Extremities exam: Present: normal inspection, full ROM, normal capillary refill. Absent: tenderness, pedal edema, joint swelling, calf tenderness Left Ankle exam: Present: normal inspection, full ROM, tenderness (Over the lateral anterior aspect). Absent: swelling, abrasion, laceration, ecchymosis, deformity, crepitus, erythema Neurological exam: Present: alert, oriented X3, CN II-XII intact Psychiatric exam: Present: normal affect, normal mood Skin exam: Present: warm, dry, intact, normal color. Absent: rash Course Vital Signs 12/19/20 23:09 Temperature 98.0 F Pulse Rate 89 Respiratory 18 Rate Blood Pressure 117/82 O2 Sat by Pulse 99 Oximetry Medical Decision Making - Medical Decision Making 22-year-old male with left ankle pain. Left ankle x-ray, 800 mg of Motrin ordered. X-ray negative for any acute fracture dislocations. Most likely a tendinitis due to patient's history and symptoms. Case discussed with Dr. Garg, patient can discharge home with follow-up primary care. - Radiology Data Radiology results: report reviewed, image reviewed Left ankle x-ray: Negative ankle exam. Disposition Clinical Impression: Left ankle tendinitis Disposition: HOME SELF-CARE Condition: Stable Instructions (If sedation given, give patient instructions): Tendinitis (ED) Additional Instructions: Please return to the Emergency Department if symptoms worsen or any other concerns. Follow-up with primary care in 3-5 days if symptoms persist. Can take Tylenol or Motrin for symptom control. Use as tolerated, get any rest ice compress elevate. Can wear compression stockings or ankle brace if it helps improve the symptoms. Is patient prescribed a controlled substance at d/c from ED?: No Referrals: Neel Rodríguez MD [Primary Care Provider] - 1-2 days Time of Disposition: 23:51
--- NOTE | 2020-12-19 23:47 | XR ---
EXAMINATION TYPE: XR ankle complete LT DATE OF EXAM: 12/19/2020 COMPARISON: NONE HISTORY: Ankle pain TECHNIQUE: 3 views FINDINGS: Ankle mortise is anatomic. I see no fracture nor dislocation. Joint spaces are normal. IMPRESSION: Negative right ankle exam.
== END 2020-12-20 00:05 | disposition home or self-care (01) ==
LOC: EC 23:04
DX: M77.52 Other enthesopathy of left foot and ankle (principal); F32.9 Major depressive disorder, single episode, unspecified; F41.9 Anxiety disorder, unspecified; I10 Essential (primary) hypertension; K21.9 Gastro-esophageal reflux disease without esophagitis
CPT/HCPCS: 99283

== ENCOUNTER 2021-03-17 23:29 | Emergency (ER) | payer BC, OTHER ==
[2021-03-17 23:41] VITALS: BP 129/77; PULSE 113; RESP 18; TEMP 98.8
[2021-03-18] MEDS ORDERED: KETOROLAC 15 MG/ML 1 ML VIAL IM STA (00:05)
--- NOTE | 2021-03-18 00:10 | ED ---
General Adult HPI - General Chief complaint: Extremity Problem,Nontraumatic Stated complaint: poss gout Time Seen by Provider: 03/17/21 23:51 Source: patient Mode of arrival: wheelchair Limitations: no limitations - History of Present Illness Initial comments: 30-year-old male with past medical history of GERD, hypertension presents to the emergency room for a chief complaint of left great toe pain. Patient states this started today. Patient reports it is in the knuckle of his great toe. States it is painful to touch. Patient reports this happened 2 months ago in his other toe and was diagnosed with gout, treated with indomethacin and prednisone. It did resolve after 2-3 days. Patient denies fevers or chills.Patient has no other complaints at this time including shortness of breath, chest pain, abdominal pain, nausea or vomiting, headache, or visual changes. - Related Data Home Medications Medication Instructions Recorded Confirmed Lisinopril-Hctz 10-12.5 mg 1 tab PO DAILY 08/27/18 08/27/18 [Zestoretic 10-12.5] Pantoprazole [Protonix] 40 mg PO DAILY 08/27/18 08/27/18 Venlafaxine HCl [Effexor XR] 75 mg PO DAILY 08/27/18 08/27/18 Previous Rx's Medication Instructions Recorded Azithromycin [Zithromax Z-pack] 0 mg PO DIRECTED #6 tab 08/27/18 Indomethacin [Indocin] 50 mg PO TID 3 Days #9 capsule 03/18/21 predniSONE 50 mg PO DAILY #5 tablet 03/18/21 Allergies Allergy/AdvReac Type Severity Reaction Status Date / Time No Known Allergies Allergy Verified 03/17/21 23:37 Review of Systems ROS Statement: Those systems with pertinent positive or pertinent negative responses have been documented in the HPI. ROS Other: All systems not noted in ROS Statement are negative. Past Medical History Past Medical History: GERD/Reflux, Hypertension History of Any Multi-Drug Resistant Organisms: None Reported Additional Past Surgical History / Comment(s): diverticulum. Past Psychological History: Anxiety, Depression Smoking Status: Never smoker Past Alcohol Use History: Occasional Past Drug Use History: None Reported General Exam Limitations: no limitations General appearance: alert Head exam: Present: atraumatic Eye exam: Present: normal appearance, PERRL, EOMI. Absent: scleral icterus ENT exam: Present: normal exam, mucous membranes moist Neck exam: Present: normal inspection, full ROM. Absent: tenderness Respiratory exam: Present: normal lung sounds bilaterally. Absent: respiratory distress, wheezes Cardiovascular Exam: Present: regular rate, normal rhythm, normal heart sounds Extremities exam: Present: normal capillary refill (Capillary refill less than 2 seconds, DP pulse 2+ left lower extremity), other (Minimal edema/erythema noted of the left great toe.) Course Vital Signs 03/17/21 23:38 Temperature 98.8 F Pulse Rate 113 H Respiratory 18 Rate Blood Pressure 129/77 O2 Sat by Pulse 99 Oximetry Medical Decision Making - Medical Decision Making Vitals are stable. Patient's electrocardiogram likely secondary to pain. Physical exam is documented, pertinent for minimal edema of the left first MTP joint. No significant erythema. X-ray of the left great toe is unremarkable. Patient was given Toradol which only helped minimally, therefore given morphine. Patient will be discharged home with prednisone and indomethacin. Will follow up with primary care. Will return for any worsening symptoms. Disposition Clinical Impression: Toe pain, left Disposition: HOME SELF-CARE Condition: Good Instructions (If sedation given, give patient instructions): Low Purine Diet (ED), Gout (ED) Additional Instructions: Please take medications as directed. Follow-up with your doctor. If you have any worsening symptoms return to the emergency room. Prescriptions: Indomethacin [Indocin] 50 mg PO TID 3 Days #9 capsule predniSONE 50 mg PO DAILY #5 tablet Is patient prescribed a controlled substance at d/c from ED?: No Referrals: Neel Rodríguez MD [Primary Care Provider] - 1-2 days Time of Disposition: 01:12
--- NOTE | 2021-03-18 00:35 | XR ---
EXAMINATION TYPE: XR toes LT DATE OF EXAM: 03/18/2021 COMPARISON: NONE HISTORY: Pain TECHNIQUE: 3 views FINDINGS: The big toe appears intact. I see no fracture nor dislocation. There are no erosions. IMPRESSION: No fracture seen. No evidence of inflammatory arthritis.
[2021-03-18] MEDS ORDERED: MORPHINE SULFATE 4 MG/ML SYRINGE IM STA (00:52)
== END 2021-03-18 01:35 | disposition home or self-care (01) ==
LOC: EC 23:29
DX: M79.675 Pain in left toe(s) (principal); I10 Essential (primary) hypertension; K21.9 Gastro-esophageal reflux disease without esophagitis; F41.9 Anxiety disorder, unspecified; F32.9 Major depressive disorder, single episode, unspecified
CPT/HCPCS: 99283; 96372 ×2; 73660; J2270; J1885

== ENCOUNTER 2021-03-19 00:32 | Emergency (ER) | payer OTHER ==
[2021-03-19 00:38] VITALS: TEMP 98.2
[2021-03-19] MEDS ORDERED: KETOROLAC 15 MG/ML 1 ML VIAL IVP STA (01:26)
[2021-03-19] MEDS ORDERED: MORPHINE SULFATE 4 MG/ML SYRINGE IVP STA (01:26)
[2021-03-19] MEDS ORDERED: methylPREDNISolone SOD SUCCI 125 MG/2 ML VIAL IV STA (01:27)
[2021-03-19 01:50] LABS: Basophils % (A) 0 %; Eosinophils # (A) 0.1 k/uL (0-0.7); Eosinophils % (A) 1 %; HCT 42.8 % (39.0-53.0); HGB 15.1 gm/dL (13.0-17.5); Lymphocytes # (A) 3.3 k/uL (1.0-4.8); Lymphocytes % (A) 24 %; MCHC 35.2 g/dL (31.0-37.0); MCV 90.8 fL (80.0-100.0); Mean Platelet Volume 7.9; Monocytes # (A) 1.4 k/uL (0-1.0); Monocytes % (A) 10 %; Neutrophils # (A) 8.5 k/uL (1.3-7.7); Neutrophils % (A) 61 %; Platelet Count 236 k/uL (150-450); Poikilocytosis Slight; RBC 4.71 m/uL (4.30-5.90); RDW 15.1 % (11.5-15.5); WBC 13.9 k/uL (3.8-10.6)
[2021-03-19 02:08] LABS: ALT 80 U/L (4-49); AST 38 U/L (17-59); African American GFR (CKD) >90 (>60 ml/min/1.73 sqM); Albumin 4.2 g/dL (3.5-5.0); Alkaline Phosphatase 74 U/L (38-126); Anion Gap 10 mmol/L; Blood Urea Nitrogen 14 mg/dL (9-20); C Reactive Protein 3.5 mg/dL (<1.0); Calcium 9.9 mg/dL (8.4-10.2); Carbon Dioxide 24 mmol/L (22-30); Chloride 103 mmol/L (98-107); Glucose 127 mg/dL (74-99); Non-African American GFR(CKD) >90 (>60 ml/min/1.73 sqM); Potassium 4.1 mmol/L (3.5-5.1); Sodium 137 mmol/L (137-145); Total Bilirubin 0.2 mg/dL (0.2-1.3); Total Protein 7.6 g/dL (6.3-8.2)
--- NOTE | 2021-03-19 02:38 | ED ---
General Adult HPI - General Chief complaint: Recheck/Abnormal Lab/Rx Stated complaint: Gout Flare Time Seen by Provider: 03/19/21 01:15 Source: patient Mode of arrival: wheelchair Limitations: no limitations - History of Present Illness Initial comments: 30-year-old male presents to the emergency room for a chief complaint of left great toe pain. Patient has a history of gout in the right great toe. Patient states the pain started 2 days ago. Patient was seen here yesterday given pain medication with a negative x-ray. He states he was much better last night and throughout the day today. However around 8:00 tonight started to cause him pain again. Patient has been taking medications as prescribed.Patient has no other complaints at this time including shortness of breath, chest pain, abdominal pain, nausea or vomiting, headache, or visual changes. - Related Data Home Medications Medication Instructions Recorded Confirmed Lisinopril-Hctz 10-12.5 mg 1 tab PO DAILY 08/27/18 08/27/18 [Zestoretic 10-12.5] Pantoprazole [Protonix] 40 mg PO DAILY 08/27/18 08/27/18 Venlafaxine HCl [Effexor XR] 75 mg PO DAILY 08/27/18 08/27/18 Previous Rx's Medication Instructions Recorded Azithromycin [Zithromax Z-pack] 0 mg PO DIRECTED #6 tab 08/27/18 Indomethacin [Indocin] 50 mg PO TID 3 Days #9 capsule 03/18/21 predniSONE 50 mg PO DAILY #5 tablet 03/18/21 Allergies Allergy/AdvReac Type Severity Reaction Status Date / Time No Known Allergies Allergy Verified 03/17/21 23:37 Review of Systems ROS Statement: Those systems with pertinent positive or pertinent negative responses have been documented in the HPI. ROS Other: All systems not noted in ROS Statement are negative. Past Medical History Past Medical History: GERD/Reflux, Hypertension History of Any Multi-Drug Resistant Organisms: None Reported Additional Past Surgical History / Comment(s): diverticulum. Past Psychological History: Anxiety, Depression Smoking Status: Never smoker Past Alcohol Use History: Occasional Past Drug Use History: None Reported General Exam Limitations: no limitations General appearance: alert Head exam: Present: atraumatic Eye exam: Present: normal appearance, PERRL, EOMI. Absent: scleral icterus, conjunctival injection ENT exam: Present: normal exam, mucous membranes moist Neck exam: Present: normal inspection, full ROM. Absent: tenderness Respiratory exam: Present: normal lung sounds bilaterally. Absent: respiratory distress, wheezes Cardiovascular Exam: Present: regular rate, normal rhythm, normal heart sounds Extremities exam: Present: full ROM (of all toes L foot), tenderness (tenderness to L great toe), normal capillary refill (cap refill < 2 seconds, Dp pulse 2+), other (mild erythema of MTP of L first toe). Absent: joint swelling (no significant edema noted of the foot or toe.) Course Vital Signs 03/19/21 00:34 Temperature 98.2 F Pulse Rate 83 Respiratory 18 Rate Blood Pressure 126/89 O2 Sat by Pulse 98 Oximetry Medical Decision Making - Medical Decision Making vitals are stable. Patient afebrile. Laboratory evaluation initiated. Mild leukocytosis likely reactive in nature. CRP exacted to be slightly elevated secondary to gouty inflammation. Patient was given pain medication and had significant improvement in symptoms. Currently rating his pain at a 2. Dr. Florez also evaluated the patient. At this time patient will be discharged home. He does have some redness over the toe that this is likely inflammatory. If it starts to spread up the foot he is aware he needs to immediately return to the emergency room. He will continue the indomethacin and we will add tylenol 3 . He will return here for any worsening symptoms such as spreading redness - Lab Data Result diagrams: 03/19/21 01:39 03/19/21 01:39 Lab Results 03/19/21 03/19/21 Range/Units 01:39 01:39 WBC 13.9 H (3.8-10.6) k/uL RBC 4.71 (4.30-5.90) m/uL Hgb 15.1 (13.0-17.5) gm/dL Hct 42.8 (39.0-53.0) % MCV 90.8 (80.0-100.0) fL MCH 32.0 (25.0-35.0) pg MCHC 35.2 (31.0-37.0) g/dL RDW 15.1 (11.5-15.5) % Plt Count 236 (150-450) k/uL MPV 7.9 Neutrophils % 61 % Lymphocytes % 24 % Monocytes % 10 % Eosinophils % 1 % Basophils % 0 % Neutrophils # 8.5 H (1.3-7.7) k/uL Lymphocytes # 3.3 (1.0-4.8) k/uL Monocytes # 1.4 H (0-1.0) k/uL Eosinophils # 0.1 (0-0.7) k/uL Basophils # 0.0 (0-0.2) k/uL Poikilocytosis Slight Sodium 137 (137-145) mmol/L Potassium 4.1 (3.5-5.1) mmol/L Chloride 103 (98-107) mmol/L Carbon Dioxide 24 (22-30) mmol/L Anion Gap 10 mmol/L BUN 14 (9-20) mg/dL Creatinine 0.84 (0.66-1.25) mg/dL Est GFR (CKD-EPI)AfAm >90 (>60 ml/min/1.73 sqM) Est GFR (CKD-EPI)NonAf >90 (>60 ml/min/1.73 sqM) Glucose 127 H (74-99) mg/dL Calcium 9.9 (8.4-10.2) mg/dL Total Bilirubin 0.2 (0.2-1.3) mg/dL AST 38 (17-59) U/L ALT 80 H (4-49) U/L Alkaline Phosphatase 74 (38-126) U/L C-Reactive Protein 3.5 H (<1.0) mg/dL Total Protein 7.6 (6.3-8.2) g/dL Albumin 4.2 (3.5-5.0) g/dL Disposition Clinical Impression: Toe pain, left Disposition: HOME SELF-CARE Condition: Good Instructions (If sedation given, give patient instructions): Gout (ED) Additional Instructions: Please take medications as directed. Please follow-up with your doctor in one to 2 days. Return to the emergency room for any worsening symptoms such as fevers or spreading redness of the foot. Is patient prescribed a controlled substance at d/c from ED?: No Referrals: Neel Rodríguez MD [Primary Care Provider] - 1-2 days Time of Disposition: 02:46
[2021-03-19] MEDS ORDERED: ACET/COD 300 MG/30 MG STARTER PACK 6 TAB BTL PO STA (02:46)
[2021-03-19 03:01] VITALS: BP 143/80; PULSE 85; RESP 20
== END 2021-03-19 03:01 | disposition home or self-care (01) ==
LOC: EC 00:32
DX: M79.675 Pain in left toe(s) (principal); I10 Essential (primary) hypertension; K21.9 Gastro-esophageal reflux disease without esophagitis; F41.9 Anxiety disorder, unspecified; F32.9 Major depressive disorder, single episode, unspecified
CPT/HCPCS: 99283; 96374; 96375 ×2; 36415; 80053; 85025; 86140; J2270; J2930; J1885

== ENCOUNTER → 2022-07-23 | Outpatient (CLI) | payer OTHER ==
--- NOTE | 2022-07-23 14:44 | XR ---
EXAMINATION TYPE: XR cervical spine limited DATE OF EXAM: 07/23/2022 1:31 PM INDICATION: Patient age:Male; 31 years old; Reason for study: M54.12; COMPARISON: None TECHNIQUE: The cervical spine was imaged in frontal, lateral, odontoid. FINDINGS: The osseous structures show normal alignment without evidence of an acute fracture. No significant ve rtebral body osteophytes or facet joint arthropathy. The intervertebral disk spaces are preserved. P edicles are intact. Soft tissues are within normal limits. The odontoid appears intact. IMPRESSION: 1. No fracture or dislocation. 2. No significant spinal canal or neural foraminal stenosis identified.
== END | disposition home or self-care (01) ==
LOC: RADXRMAIN 13:06
PROVIDERS: ATTEND Internal Medicine
DX: M54.12 Radiculopathy, cervical region (principal)
CPT/HCPCS: 72040

== ENCOUNTER 2024-02-16 14:06 | Emergency (ER) | payer BC, OTHER ==
--- NOTE | 2024-02-16 14:56 | XR ---
EXAMINATION TYPE: XR knee complete RT DATE OF EXAM: 02/16/2024 2:50 PM CLINICAL INDICATION:Male, 33 years old with history of knee pain; [facility] COMPARISON: None. TECHNIQUE: XR knee complete right; examined in Frontal, lateral and oblique projections. FINDINGS: No evidence of any acute osseous pathology, soft tissue swelling, or joint effusion is no zach. IMPRESSION: 1. No acute osseous pathology. 2. No significant osteoarthritic changes.
--- NOTE | 2024-02-16 15:14 | ED ---
Lower Extremity Injury HPI - General Chief Complaint: Extremity Injury, Lower Stated Complaint: knee pain Time Seen by Provider: 02/16/24 14:22 Source: patient, RN notes reviewed Mode of arrival: ambulatory Limitations: no limitations - History of Present Illness Initial Comments: This is a 33-year-old male presents emergency department chief complaint of right knee pain. Patient states that he has been experiencing right knee pain over the past few months. He denies any known trauma or injury to the right knee. He states that the pain is intermittent and he will experiencing a cracking and popping of the knee while bending. He has not attempted many at home supportive measures at home. Denies previous surgeries to the knee. No other acute complaints at this time. - Related Data Home Medications Medication Instructions Recorded Confirmed Lisinopril-Hctz 10-12.5 mg 1 tab PO DAILY 08/27/18 08/27/18 [Zestoretic 10-12.5] Pantoprazole [Protonix] 40 mg PO DAILY 08/27/18 08/27/18 Venlafaxine HCl [Effexor XR] 75 mg PO DAILY 08/27/18 08/27/18 Previous Rx's Medication Instructions Recorded Azithromycin [Zithromax Z-pack] 0 mg PO DIRECTED #6 tab 08/27/18 Indomethacin [Indocin] 50 mg PO TID 3 Days #9 capsule 03/18/21 predniSONE 50 mg PO DAILY #5 tablet 03/18/21 Allergies Allergy/AdvReac Type Severity Reaction Status Date / Time No Known Allergies Allergy Verified 03/17/21 23:37 Review of Systems ROS Statement: Those systems with pertinent positive or pertinent negative responses have been documented in the HPI. ROS Other: All systems not noted in ROS Statement are negative. Past Medical History Past Medical History: GERD/Reflux, Hypertension History of Any Multi-Drug Resistant Organisms: None Reported Additional Past Surgical History / Comment(s): diverticulum. Past Psychological History: Anxiety, Depression Smoking Status: Never smoker Past Alcohol Use History: Occasional Past Drug Use History: None Reported General Exam Limitations: no limitations General appearance: alert, in no apparent distress Head exam: Present: atraumatic, normocephalic, normal inspection Eye exam: Present: normal appearance, PERRL, EOMI. Absent: scleral icterus, conjunctival injection, periorbital swelling ENT exam: Present: normal exam, mucous membranes moist Neck exam: Present: normal inspection. Absent: tenderness, meningismus, lymphadenopathy Respiratory exam: Present: normal lung sounds bilaterally. Absent: respiratory distress, wheezes, rales, rhonchi, stridor Cardiovascular Exam: Present: regular rate, normal rhythm, normal heart sounds. Absent: systolic murmur, diastolic murmur, rubs, gallop, clicks GI/Abdominal exam: Present: soft, normal bowel sounds. Absent: distended, tenderness, guarding, rebound, rigid Right Knee exam: Present: normal inspection, full ROM, tenderness (Ear, posterior), crepitus, full knee extension. Absent: swelling, abrasion, laceration, ecchym osis, deformity, dislocation, erythema, effusion Foot/Toe exam: Present: normal inspection Neurovascular tendon exam: Present: no vascular compromise Gait: observed and normal Back exam: Present: normal inspection Neurological exam: Present: alert, oriented X3, CN II-XII intact Psychiatric exam: Present: normal affect, normal mood Skin exam: Present: warm, dry, intact, normal color. Absent: rash Course Vital Signs 02/16/24 02/16/24 14:21 15:48 Temperature 97.9 F 98 F Pulse Rate 69 71 Respiratory 18 16 Rate Blood Pressure 146/80 135/81 O2 Sat by Pulse 100 97 Oximetry Medical Decision Making - Medical Decision Making Was pt. sent in by a medical professional or institution ([facility], OUTSIDE SALESMAN, urgent ca re, hospital, or senior living...) When possible be specific @ -No Did you speak to anyone other than the patient for history (EMS, parent, family, police, friend...)? What history was obtained from this source @ -No Did you review nursing and triage notes (agree or disagree)? Why? @ -I reviewed and agree with nursing and triage notes Were old charts reviewed (outside hosp., previous admission, EMS record, old EKG, old radiological studies, urgent care reports/EKG's, senior living records)? Report findings @ -No old charts were reviewed Differential Diagnosis (chest pain, altered mental status, abdominal pain women, abdominal pain men, vaginal bleeding, weakness, fever, dyspnea, syncope, headache, dizziness, GI bleed, back pain, seizure, CVA, palpatations, mental health, musculoskeletal)? @ -Differential Musculoskeletal Muscular strain, contusion, ligament sprain, fracture, arthritis, septic arthritis, bursitis, cellulitis, muscle spasm, nerve compression, DVT, arterial occlusion, herpes zoster, electrolyte abnormality, tumor.... This is not meant to be in all inclusive list EKG interpreted by me (3pts min.). @ -None X-rays interpreted by me (1pt min.). @ -X-ray of the right knee reveals no acute bony abnormalities. CT interpreted by me (1pt min.). @ -None done U/S interpreted by me (1pt. min.). @ -None done What testing was considered but not performed or refused? (CT, X-rays, U/S, labs)? Why? @ -None What meds were considered but not given or refused? Why? @ -None Did you discuss the management of the patient with other professionals (professionals i.e. , PA, OUTSIDE SALESMAN, lab, RT, psych nurse, social media intern, web press jogger, teacher, biosecurity officer, caser)? Give summary @ -No Was smoking cessation discussed for >3mins.? @ -No Was critical care preformed (if so, how long)? @ -No Were there social determinants of health that impacted care today? How? (Homelessness, low income, unemployed, alcoholism, drug addiction, transportation, low edu. Level, literacy, decrease access to med. care, skilled nursing, rehab)? @ -No Was there de-escalation of care discussed even if they declined (Discuss DNR or withdrawal of care, Hospice)? DNR status @ -No What co-morbidities impacted this encounter? (DM, HTN, Smoking, COPD, CAD, Cancer, CVA, ARF, Chemo, Hep., AIDS, mental health diagnosis, sleep apnea, morbid obesity)? @ -None Was patient admitted / discharged? Hospital course, mention meds given and route, prescriptions, significant lab abnormalities, going to OR and other pertinent info. @ -discharged. 33-year-old male with right knee pain. On examination patient is noted to have no obvious deformities. Range of motion is intact with mild pain to the anterior posterior knee with flexion extension. There are no neurovascular or muscular deficits noted. X-rays negative for acute process. Recommend patient follows up with her primary care provider for further evaluation and continue symptomatic measures at home with Tylenol and Motrin. Time, there is minimal clinical concern for further emergent abnormalities. All questions answered at bedside and strict return parameters discussed with the patient he is verbalized understanding. Case discussed with Dr. Shah Undiagnosed new problem with uncertain prognosis? @ -No Drug Therapy requiring intensive monitoring for toxicity (Heparin, Nitro, Insulin, Cardizem)? @ -No Were any procedures done? @ -No Diagnosis/symptom? @ -Knee pain Acute, or Chronic, or Acute on Chronic? @ -Acute Uncomplicated (without systemic symptoms) or Complicated (systemic symptoms)? @ -Uncomplicated Side effects of treatment? @ -No Exacerbation, Progression, or Severe Exacerbation? @ -No Poses a threat to life or bodily function? How? (Chest pain, [place], MT, pneumonia, PE, COPD, DKA, ARF, appy, cholecystitis, CVA, Diverticulitis, Homicidal, Suicidal, threat to staff... and all critical care pts) @ -No Disposition Clinical Impression: Right knee pain Disposition: HOME SELF-CARE Condition: Good Instructions (If sedation given, give patient instructions): Knee Pain (ED) Additional Instructions: Return to the emergency department for any new or worsening symptoms. Continue supportive treatment at home and recommended follow-up with your primary care provider for further evaluation and recommendation. Is patient prescribed a controlled substance at d/c from ED?: No Referrals: Neel Rodríguez MD [Primary Care Provider] - 1-2 days Time of Disposition: 15:14
[2024-02-16 15:49] VITALS: BP 135/81; PULSE 71; RESP 16; TEMP 98
== END 2024-02-16 15:48 | disposition home or self-care (01) ==
LOC: EC 14:06
DX: M25.561 Pain in right knee (principal)
CPT/HCPCS: 99283

== ENCOUNTER → 2024-05-16 | Outpatient (CLI) | payer BC ==
--- NOTE | 2024-05-16 08:53 | MR ---
EXAMINATION TYPE: MR cervical spine wo con DATE OF EXAM: 05/16/2024 COMPARISON: Cervical spine radiograph 07/23/2022 HISTORY: Fazal upper extremity numbness TECHNIQUE: Multiplanar, multisequence images of the cervical spine were acquired without contrast. FINDINGS: Alignment: The cervical vertebral bodies have preserved heights. Alignment is within normal limits gi francis patient positioning. Bones: Bone signal is within normal limits. Cord: The spinal cord is unremarkable with regards to their signal intensity and morphology. Discs: Intervertebral disc signal is maintained. C2-C3: No significant disc pathology. The spinal canal is patent. No neural foraminal stenosis. C3-C4: No significant disc pathology. The spinal canal is patent. No neural foraminal stenosis. C4-C5: No significant disc pathology. The spinal canal is patent. No neural foraminal stenosis. C5-C6: No significant disc pathology. The spinal canal is patent. No neural foraminal stenosis. C6-C7: No significant disc pathology. The spinal canal is patent. No neural foraminal stenosis. C7-T1: No significant disc pathology. The spinal canal is patent. No neural foraminal stenosis. Other: None. IMPRESSION: No evidence for disc herniation or significant spinal canal stenosis. No evidence of disc degeneratio n. [facility], , 05/16/2024 8:51 AM
== END | disposition home or self-care (01) ==
LOC: RADMRIMAIN 06:01
PROVIDERS: ATTEND Internal Medicine
DX: M54.12 Radiculopathy, cervical region (principal)
CPT/HCPCS: 72141